=== PATIENT | male | born 1990 | race Caucasian/White ===

== ENCOUNTER 2019-04-04 14:22 | Emergency (ER) | payer SELFPAY ==
[~2019-04-04] VITALS: Ht 180.3 cm; Wt 100.4 kg
[2019-04-04 14:27] VITALS: BP 144/87
--- NOTE | 2019-04-04 14:48 | NUR ---
SUDDEN ONSET OF FEAR, PALPITATIONS, X 2 WK INTERMITTENT DENIES ETOH ABUSE OR DRUG USE--- ADMITS HAS BEEN STRESSED AT WORK LATELY--CK
[2019-04-04] MEDS ORDERED: KETOROLAC 30 MG/ML VIAL IM ONE (14:50)
[2019-04-04] MEDS ORDERED: DIAZEPAM 5 MG TAB PO ONE (14:50)
--- NOTE | 2019-04-04 14:51 | NUR ---
DR WILSON AT BEDSIDE FOR PT EVALUATION
--- NOTE | 2019-04-04 16:10 | NUR ---
PT AAO X4. CONVERSATING WITH FRIEND APPROPRIATELY. PT STATES THAT HE FEELS BETTER. NO SIGNS AND SYMPTOMS OF DISTRESS NOTED.
--- NOTE | 2019-04-04 16:45 | NUR ---
PT SITTING UP. AAO X4, FULL CLEAR SPEECH. EVEN AND UNLABORED BREATHING. NO SIGNS AND SYMPTOMS OF DISTRESS NOTED. PT'S FRIEND AT BEDSIDE.
[2019-04-04 17:12] VITALS: BP 115/72
--- NOTE | 2019-04-04 17:12 | NUR ---
Patient discharged with v/s stable. Written and verbal after care instructions given and explained. Patient alert, oriented and verbalized understanding of instructions. Ambulatory with steady gait. All questions addressed prior to discharge. ID band removed. Patient advised to follow up with PMD. Rx of Valium 5mg and Naprosyn 500mg given. Patient educated on indication of medication including possible reaction and side effects. Opportunity to ask questions provided and answered.
== END 2019-04-04 17:12 | disposition home or self-care (01) ==
LOC: MED 14:22
DX: R20.2 Paresthesia of skin (principal); F41.9 Anxiety disorder, unspecified; M62.838 Other muscle spasm; E11.9 Type 2 diabetes mellitus without complications; I10 Essential (primary) hypertension
CPT/HCPCS: 71045; 93005; 96372; 99283; J1885; Q0092

== ENCOUNTER 2019-04-05 22:59 | Emergency (ER) | payer MEDICAID ==
[~2019-04-05] VITALS: Ht 180.3 cm; Wt 99.8 kg
[2019-04-05 23:06] VITALS: BP 130/74
--- NOTE | 2019-04-05 23:12 | NUR ---
AMBULATED TO ER BED 1
[2019-04-05] MEDS ORDERED: LORazepam 2 MG/ML VIAL IVP ONE (23:15)
[2019-04-05] MEDS ORDERED: NACL 0.9% 1,000 ML IV ONE (23:15)
--- NOTE | 2019-04-05 23:24 | NUR ---
28 Y/O MALE C/O STERNAL CHEST PAIN. PAIN STARTS IN THE MID EPIGASTRIC AND RADIATES TO THE RIGHT SHOULDER ; 03/19 SHARP, BURNING PAIN. PT. SEEN HERE ON 04/04/19 TREATED FOR ANXIETY. STATES DIAZEPAM IS NOT HELPING AT THIS TIME. VSS. LUNGS CLEAR BILAT. RR 18 @100% RA. HR 90 BPM. ER MD TO SEE PATIENT. SIDERAILS X1. HX: ANXIETY MEDS: DIAZEPAM AND NAPROXEN NKDA
[2019-04-05] MEDS ORDERED: KETOROLAC 30 MG/ML VIAL IVP ONE (23:50)
--- NOTE | 2019-04-06 01:14 | NUR ---
X-RAY AT [facility].
--- NOTE | 2019-04-06 01:15 | NUR ---
Patient discharged with v/s stable. Written and verbal after care instructions given and explained. Patient verbalized understanding. Ambulatory with steady gait. All questions addressed prior to discharge. Advised to follow up with PMD.
[2019-04-06 01:17] VITALS: BP 126/78
== END 2019-04-06 01:15 | disposition home or self-care (01) ==
LOC: MED 22:59
DX: M94.0 Chondrocostal junction syndrome [Tietze] (principal); F41.9 Anxiety disorder, unspecified
CPT/HCPCS: 71045; 93005; 96361; 96374; 96375; 99283; J1885; J2060; J7030

== ENCOUNTER 2019-04-22 12:56 | Emergency (ER) | payer MEDICAID ==
[~2019-04-22] VITALS: Ht 180.3 cm; Wt 101.4 kg
[2019-04-22 13:02] VITALS: BP 142/78
--- NOTE | 2019-04-22 13:06 | NUR ---
PT TAKEN TO BED 7.
--- NOTE | 2019-04-22 13:10 | NUR ---
28/M c/o chest pain 20 mins [employer]. Patient states she has been having a lot of stress at work. Pt c/o chest pain sternal, 05/19. Pt appears calm and relaxed, talking with friend. AOX4. clear speech.
[2019-04-22] MEDS ORDERED: KETOROLAC 30 MG/ML VIAL IVP ONE (13:45)
[2019-04-22] MEDS ORDERED: NACL 0.9% 1,000 ML IV ONE (13:45)
[2019-04-22] MEDS ORDERED: LORazepam 2 MG/ML VIAL IVP ONE (13:50)
[2019-04-22 14:10] LABS: BASOPHILS % (AUTO) 0.4 % (0.0-2.0); EOSINOPHILS # (AUTO) 0.1 K/uL (0-0.4); EOSINOPHILS % (AUTO) 0.7 % (0.0-4.0); HEMATOCRIT 44.6 % (36-52); HEMOGLOBIN 15.1 g/dL (12.0-18.0); LYMPHOCYTES # (AUTO) 1.7 K/uL (2.0-11.5); LYMPHOCYTES % (AUTO) 18.8 % (20.5-51.1); MEAN CORPUSCULAR HEMOGLOBIN 32 pg (27-31); MEAN CORPUSCULAR HGB CONC 34 g/dL (33-37); MEAN CORPUSCULAR VOLUME 92.9 fL (80-94); MONOCYTES # (AUTO) 0.8 K/uL (0.8-1.0); MONOCYTES % (AUTO) 8.7 % (1.7-9.3); NEUTROPHILS # (AUTO) 6.3 K/uL (1.8-7.7); NEUTROPHILS % (AUTO) 71.4 % (42.2-75.2); PLATELET COUNT (AUTO) 201 K/uL (140-450); RED CELL DISTRIBUTION WIDTH 12.8 % (11.6-13.7); WHITE BLOOD COUNT (AUTO) 8.8 K/uL (4.8-10.8)
--- NOTE | 2019-04-22 15:00 | NUR ---
IV removed, catheter intact and site benign. Applied folded 4x4 gauze and tape to stop bleeding.
[2019-04-22 15:02] LABS: CARBON DIOXIDE 23.9 mmol/L (21-32); POTASSIUM 3.9 mmol/L (3.5-5.1)
[2019-04-22 15:03] LABS: ALBUMIN 4.1 g/dL (3.4-5.0); CREATININE 1.6 mg/dL (0.7-1.3); TOTAL BILIRUBIN 1.5 mg/dL (0.0-1.0)
[2019-04-22 15:22] VITALS: BP 124/81
== END 2019-04-22 15:22 | disposition home or self-care (01) ==
LOC: MED 12:56
DX: R07.89 Other chest pain (principal); F41.9 Anxiety disorder, unspecified
CPT/HCPCS: 36415; 71045; 80053; 82948; 84484; 85025; 93005; 96374; 96375; 99284; J1885; J2060; J7030; Q0092

== ENCOUNTER 2019-04-25 13:07 | Emergency (ER) | payer MEDICAID ==
[~2019-04-25] VITALS: Ht 180.3 cm; Wt 98.9 kg
[2019-04-25 13:27] VITALS: BP 122/74
--- NOTE | 2019-04-25 13:32 | NUR ---
URINE CUP HANDED TO PT FOR SAMPLE
--- NOTE | 2019-04-25 14:36 | NUR ---
PT TAKEN TO BED 5.
--- NOTE | 2019-04-25 14:45 | NUR ---
PT BIB FAMILY C/O INTERMITTENT BURNING EPIGASTRIC PAIN RADIATING TO ANTERIOR CHEST WALL THAT INCREASES AFTER EATING. LAST BM 04/25/19, BLACK STOOLS X 2-3 DAYS; DENIES ETOH CONSUMPTION HX---GERD, ANXIETY RX---??
[2019-04-25] MEDS ORDERED: FAMOTIDINE 20 MG TAB PO ONE (15:45)
[2019-04-25 17:00] LABS: BASOPHILS % (AUTO) 0.3 % (0.0-2.0); EOSINOPHILS % (AUTO) 0.3 % (0.0-4.0); HEMATOCRIT 43.8 % (36-52); LYMPHOCYTES # (AUTO) 2.3 K/uL (2.0-11.5); LYMPHOCYTES % (AUTO) 23.8 % (20.5-51.1); MEAN CORPUSCULAR HEMOGLOBIN 32 pg (27-31); MEAN CORPUSCULAR HGB CONC 34 g/dL (33-37); MEAN CORPUSCULAR VOLUME 91.8 fL (80-94); MONOCYTES % (AUTO) 10.9 % (1.7-9.3); NEUTROPHILS # (AUTO) 6.2 K/uL (1.8-7.7); NEUTROPHILS % (AUTO) 64.7 % (42.2-75.2); PLATELET COUNT (AUTO) 213 K/uL (140-450); RED BLOOD CELL COUNT(AUTO) 4.77 MIL/uL (4.20-6.10); RED CELL DISTRIBUTION WIDTH 12.7 % (11.6-13.7); WHITE BLOOD COUNT (AUTO) 9.6 K/uL (4.8-10.8)
[2019-04-25 17:41] LABS: ANION GAP 17.4 (8-16); CREATININE 1.1 mg/dL (0.7-1.3); POTASSIUM 3.4 mmol/L (3.5-5.1); TOTAL BILIRUBIN 2.5 mg/dL (0.0-1.0)
[2019-04-25 17:42] LABS: ALBUMIN 4.1 g/dL (3.4-5.0)
--- NOTE | 2019-04-25 17:54 | NUR ---
PT RESTING IN BED, FAMILY AT BEDSIDE, REPORTS PAIN AT 5/10 IN EPIGASTRIC REGION, REPORTS PAIN IS TOLERABLE, VSS, NO SOB OR N/V.
[2019-04-25 19:14] VITALS: BP 117/77
--- NOTE | 2019-04-25 19:14 | NUR ---
Received report from ROSE Estrada. Patient discharged with v/s stable. Written and verbal after care instructions given and explained. Patient alert, oriented and verbalized understanding of instructions. Ambulatory with steady gait. All questions addressed prior to discharge. ID band removed. Patient advised to follow up with PMD. Rx of Zofran ODT 4mg and Omeprazole 40mg delayed-release given. Patient educated on indication of medication including possible reaction and side effects. Educated regarding food choices and s/s cause of GERD, pt verbalized understanding. Opportunity to ask questions provided and answered.
== END 2019-04-25 19:14 | disposition home or self-care (01) ==
LOC: MED 13:07
DX: K21.9 Gastro-esophageal reflux disease without esophagitis (principal); F41.9 Anxiety disorder, unspecified
CPT/HCPCS: 36415; 76705; 80053; 83690; 84484; 85025; 93005; 99284; Q0092

== ENCOUNTER 2019-04-26 13:44 | Emergency (ER) | payer MEDICAID ==
[~2019-04-26] VITALS: Ht 180.3 cm; Wt 97.3 kg
[2019-04-26 13:50] VITALS: BP 119/79
--- NOTE | 2019-04-26 13:53 | NUR ---
PT TAKEN TO BED 3.
--- NOTE | 2019-04-26 14:08 | NUR ---
Note undone in EDM - 04/26/19 at 1439 by [email or web address] PT C/O RT SIDED ARM AND LEG NUMBNESS THAT STARTED 30 MIN AGO. SHARP PAIN RT SIDE OF NECK. NAUSEA X3 DAYS. 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 PAIN AND NUMBNESS STARTED POST WORK INJURY. PT SEEN YESTERDAY FOR SAME REASON. IN BED RESTING, RESPIRATIONS EVEN AND UNLABORED. ABD SOFT, NONTENDER TO PALP. MEDHX: GERD ALLERGIES: DENIES
--- NOTE | 2019-04-26 14:08 | NUR ---
PT C/O RT SIDED ARM AND LEG NUMBNESS THAT STARTED 30 MIN AGO. SHARP PAIN RT SIDE OF NECK. NAUSEA X3 DAYS. 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 PAIN AND NUMBNESS STARTED POST WORK INJURY. PT SEEN YESTERDAY FOR SAME REASON. PT HAS EQUAL STRONG BILATERAL HAND STRENGTH, NO FACIAL DROP OR SLURRED SPEECH NOTED.IN BED RESTING, ON PHONE. RESPIRATIONS EVEN AND UNLABORED. ABD SOFT, NONTENDER TO PALP. MEDHX: GERD ALLERGIES: DENIES
--- NOTE | 2019-04-26 15:14 | NUR ---
Patient discharged with v/s stable. Written and verbal after care instructions given and explained. Patient alert, oriented and verbalized understanding of instructions. Ambulatory with to home. All questions addressed prior to discharge. ID band removed. Patient advised to follow up with PMD. Rx of PREDNISONE AND IBURPROFEN given. Patient educated on indication of medication including possible reaction and side effects. Opportunity to ask questions provided and answered.
[2019-04-26 15:15] VITALS: BP 119/79
== END 2019-04-26 15:14 | disposition home or self-care (01) ==
LOC: MED 13:44
DX: G57.11 Meralgia paresthetica, right lower limb (principal); R20.2 Paresthesia of skin; M79.651 Pain in right thigh; M79.601 Pain in right arm; M54.2 Cervicalgia; K21.9 Gastro-esophageal reflux disease without esophagitis
CPT/HCPCS: 82948; 99283

== ENCOUNTER 2019-05-06 19:03 | Emergency (ER) | payer MEDICAID ==
[~2019-05-06] VITALS: Ht 180.3 cm; Wt 98.4 kg
[2019-05-06 19:05] VITALS: BP 114/63
--- NOTE | 2019-05-06 19:16 | NUR ---
PT AMBULATED TO ER BED 11
--- NOTE | 2019-05-06 19:20 | NUR ---
28 YO M BIB SELF PRESENTS TO ED C/O 01/17 RIGHT 4TH DIGIT TINGLING PAIN THAT RADIATES UP INTO FORARM S/P WORKING ON CAR; PT RECEIVED 1 CM SUPERFICIAL LACERATION TO 4TH DIGIT KNUCKLE. BLEEDING CONTROLLED. PT STATES "I THINK A METAL SHAVING GOT STUCK INSIDE. I CAN FEEL IT." -- PT AWAKE, A/O X 4, CALM, COOPERATIVE. ANSWERING QUESTIONS APPROPRIATELY. BEHAVIOR AGE APPROPRIATE. -- SKIN PINK, WARM, DRY. BREATHING EVEN, UNLABORED. PMH-- DENIES RX-- DENIES
--- NOTE | 2019-05-06 21:49 | NUR ---
DR. DIXON EVALUATING AT BEDSIDE.
[2019-05-07 00:10] VITALS: BP 127/78
== END 2019-05-07 | disposition home or self-care (01) ==
LOC: MED 19:03
DX: S60.454A Superficial foreign body of right ring finger, initial encounter (principal); K21.9 Gastro-esophageal reflux disease without esophagitis; W45.8XXA Other foreign body or object entering through skin, initial encounter; Y93.89 Activity, other specified; Y92.89 Other specified places as the place of occurrence of the external cause; Y99.8 Other external cause status
CPT/HCPCS: 73140; 90471; 90715; 99283; Q0092

== ENCOUNTER 2023-02-02 17:54 | Emergency (ER) | payer MEDICAID, OTHER ==
[~2023-02-02] VITALS: Ht 180.3 cm; Wt 93.9 kg
[2023-02-02 18:02] VITALS: BP 130/90; PULSE 87; RESP 16; TEMP 98.1; O2SAT 100
[2023-02-02 19:15] LABS: BASOPHILS % (AUTO) 0.4 % (0.0-2.0); EOSINOPHILS % (AUTO) 0.5 % (0.0-4.0); HEMOGLOBIN 15.5 g/dL (12.0-18.0); LYMPHOCYTES # (AUTO) 1.9 K/uL (2.0-11.5); LYMPHOCYTES % (AUTO) 21.8 % (20.5-51.1); MEAN CORPUSCULAR HEMOGLOBIN 32 pg (27-31); MEAN CORPUSCULAR HGB CONC 34 g/dL (33-37); MEAN CORPUSCULAR VOLUME 92.7 fL (80-94); MONOCYTES # (AUTO) 0.8 K/uL (0.8-1.0); MONOCYTES % (AUTO) 8.9 % (1.7-9.3); NEUTROPHILS # (AUTO) 5.8 K/uL (1.8-7.7); NEUTROPHILS % (AUTO) 68.4 % (42.2-75.2); PLATELET COUNT (AUTO) 232 K/uL (140-450); RED BLOOD CELL COUNT(AUTO) 4.85 MIL/uL (4.20-6.10); RED CELL DISTRIBUTION WIDTH 12.9 % (11.6-13.7); WHITE BLOOD COUNT (AUTO) 8.6 K/uL (4.8-10.8)
--- NOTE | 2023-02-02 19:43 | NUR ---
PT TO BED #8
[2023-02-02 19:51] LABS: ALBUMIN 4.6 g/dL (3.4-5.0); ANION GAP 14.8 (8-16); CARBON DIOXIDE 27.4 mmol/L (21-32); POTASSIUM 4.2 mmol/L (3.5-5.1); TOTAL BILIRUBIN 1.6 mg/dL (0.0-1.0)
--- NOTE | 2023-02-02 19:56 | NUR ---
32YO M BIB SELF C/O BLURRED VISION X TODAY. PT STATES HE WAS AT WORK WHEN HE SAW A "DARK SPOT AND BLURRY VISION". -KO. PT STATES RELIEVED WHEN SITTING DOWN IN CAR RELAXED. NKDA NO MED HX.
[2023-02-02 20:18] VITALS: O2SAT 100
--- NOTE | 2023-02-02 20:57 | NUR ---
The patient's care was reviewed and supervised by Elizabeth Potter RN.
== END 2023-02-02 20:28 | disposition home or self-care (01) ==
LOC: MED 17:54
DX: R55 Syncope and collapse (principal); H53.8 Other visual disturbances; K21.9 Gastro-esophageal reflux disease without esophagitis; Z79.899 Other long term (current) drug therapy
CPT/HCPCS: 36415; 80053; 85025; 93005; 99284

== ENCOUNTER 2023-12-18 18:44 | Emergency (ER) | payer OTHER ==
[~2023-12-18] VITALS: Ht 180.3 cm; Wt 93.0 kg
[2023-12-18 18:48] VITALS: BP 123/72; PULSE 82; RESP 18; TEMP 97.3; O2SAT 98
[2023-12-18] MEDS ORDERED: IBUP-2213 PO (19:25)
[2023-12-18 19:58] VITALS: BP 122/75; PULSE 73; RESP 19; TEMP 97.8; O2SAT 99
== END 2023-12-18 20:10 | disposition home or self-care (01) ==
LOC: MED 18:44
DX: R07.89 Other chest pain (principal); Z79.899 Other long term (current) drug therapy
CPT/HCPCS: 93005; 99283